=== PATIENT | male | born 1985 | race African-American/Black ===

== ENCOUNTER 2017-03-26 21:59 | Emergency (ER) | payer OTHER ==
[~2017-03-26] VITALS: Ht 182.9 cm; Wt 81.8 kg
[2017-03-27 01:04] VITALS: BP 130/80
== END 2017-03-27 01:07 | disposition home or self-care (01) ==
LOC: M ED 21:59
DX: S61.213A Laceration without foreign body of left middle finger without damage to nail, initial encounter (principal); W45.8XXA Other foreign body or object entering through skin, initial encounter; Y92.59 Other trade areas as the place of occurrence of the external cause; Y93.89 Activity, other specified; Y99.0 Civilian activity done for income or pay

== ENCOUNTER 2017-05-24 16:55 | Inpatient (IN) | payer OTHER ==
[~2017-05-24] VITALS: Ht 182.9 cm; Wt 82.0 kg
[2017-05-24] MEDS ORDERED: MIRT1TAB PO (17:02)
[2017-05-24 17:48] LABS: MEAN CORPUSCULAR HEMOGLOBIN 29.7 pg (27.0-33.0); MEAN CORPUSCULAR VOLUME 89.9 fl (80.0-96.0); PLATELET COUNT, AUTOMATED 211 10^3/uL (150-450); RED CELL DISTRIBUTION WIDTH 13.2 % (11.5-14.5); WHITE BLOOD COUNT 6.1 10^3/uL (4.0-10.0)
[2017-05-24 18:14] LABS: METHADONE URINE NEGATIVE (NEGATIVE)
[2017-05-24 18:20] LABS: ALBUMIN/GLOBULIN RATIO 1.08 (1.00-1.93); ALKALINE PHOSPHATASE 50 U/L (45-117); ALT/SGPT 24 U/L (12-78); ANION GAP 6 MEQ/L (8-16); AST/SGOT 14 U/L (7-37); BILIRUBIN,DIRECT 0.1 MG/DL (0.0-0.2); BILIRUBIN,TOTAL 0.4 MG/DL (0.2-1.0); BLOOD UREA NITROGEN 14 MG/DL (7-18); CALCIUM LEVEL 8.7 MG/DL (8.5-10.1); CARBON DIOXIDE LEVEL 32 MEQ/L (21-32); CHLORIDE LEVEL 102 MEQ/L (98-107); CREATININE FOR GFR 1.07 MG/DL (0.70-1.30); GLOMERULAR FILTRATION RATE > 60.0 (>60); GLUCOSE, FASTING 69 MG/DL (70-105); SODIUM LEVEL 140 MEQ/L (136-145); TOTAL PROTEIN 7.7 GM/DL (6.4-8.2)
[2017-05-24] MEDS ORDERED: MIRT15TA3 PO (19:23)
[2017-05-24] MEDS ORDERED: GUAIDM5UD PO (19:23)
[2017-05-24] MEDS ORDERED: PRAZ2CAP PO (19:23)
[2017-05-24] MEDS ORDERED: SKEL800T97 PO (19:23)
[2017-05-24] MEDS ORDERED: DIVA250T PO (19:23)
[2017-05-24] MEDS ORDERED: SORE15LO MT (19:23)
[2017-05-24] MEDS ORDERED: MIRTAZAPINE 15 MG TAB PO ONE (20:15)
[2017-05-24] MEDS ORDERED: DIVALPROEX 250 MG TAB PO ONE (20:15)
[2017-05-24] MEDS ORDERED: PRAZOSIN 1 MG CAP PO ONE (20:15)
[2017-05-25] MEDS ORDERED: ACETAMINOPHEN TAB 650MG DOSE (2X325MG) PO PRN (02:15)
[2017-05-25] MEDS ORDERED: MAALOX 30 ML SUSP *UDC PO PRN (02:15)
[2017-05-25] MEDS ORDERED: MOM 30ML SUSPENSION UDC PO PRN (02:15)
[2017-05-25 02:33] VITALS: BP 126/80
[2017-05-25 07:15] VITALS: BP 137/70
[2017-05-25] MEDS: VENLAFAXINE **XR** 37.5 MG CAPSULE PO SCH (11:20)
[2017-05-25] MEDS: GABAPENTIN 300 MG CAP PO SCH (11:21)
[2017-05-25 18:00] VITALS: BP 140/80
[2017-05-26] MEDS: AUGMENTIN 875 MG TAB PO SCH ×3 (00:02→21:43)
[2017-05-26] MEDS: QUEtiapine FUMARATE 100 MG TAB PO SCH ×2 (00:03→21:44)
[2017-05-26] MEDS: PRAZOSIN 1 MG CAP PO SCH ×2 (00:03→21:44)
[2017-05-26] MEDS: GABAPENTIN 300 MG CAP PO SCH ×3 (00:03→21:44)
[2017-05-26] MEDS: MIRTAZAPINE 15 MG TAB PO SCH ×2 (00:03→21:44)
[2017-05-26 06:00] VITALS: BP 150/68
[2017-05-26 09:35] VITALS: BP 175/88
[2017-05-26 09:38] VITALS: BP 132/76
[2017-05-26] MEDS: VENLAFAXINE **XR** 37.5 MG CAPSULE PO SCH (10:31)
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
[2017-05-26 18:00] VITALS: BP 140/70
[2017-05-27 07:01] VITALS: BP 133/75
[2017-05-27 08:07] VITALS: BP 133/75
[2017-05-27] MEDS: GABAPENTIN 300 MG CAP PO SCH (09:47)
[2017-05-27] MEDS: VENLAFAXINE **XR** 75MG CAPSULE PO SCH (09:47)
[2017-05-27] MEDS: AUGMENTIN 875 MG TAB PO SCH ×2 (09:47→22:08)
[2017-05-27] MEDS: DIVALPROEX 250MG *ER* TAB PO SCH ×2 (12:00→22:07)
[2017-05-27 18:00] VITALS: BP 135/75
--- NOTE | 2017-05-27 21:04 | MHIPN ---
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 MEDICATIONS: - Remeron 30 mg by mouth at night - Seroquel 100 mg by mouth at night - Minipres 2 mg by mouth at night - Effexor XR 37.5 mg by mouth in the morning - trazodone 50 mg as needed for insomnia SUBJECTIVE: "I think I am feeling better." OBJECTIVE: No major changes from yesterday on admission. The patient continues to have sad restricted facial expression and psychomotor retardation. The patient is mostly in his room, very little interaction with other patients and staff. There is no evidence of psychotic symptoms. Denies side effects from the medications. MENTAL STATUS EXAMINATION: The patient is dressed in [facility]. The patient is cooperative during the exam. Has fair eye contact. Speech is slow and monotone. Mood is depressed and anxious. Affect is restricted. No delusions or hallucinations. Memory, attention and concentration are fair. The patient is able to contract for safety during the interview. Insight and judgment is limited. ASSESSMENT: 1. Depression. 2. Suicidal ideation. PLAN: 1. Remeron 30 mg by mouth at night. 2. Seroquel 100 mg by mouth at night. 3. Minipres 2 mg by mouth at night. 4. Effexor XR 75 mg by mouth in the morning. 5. Neurontin 300 mg by mouth twice a day.
[2017-05-27] MEDS: traZODone 50 MG TAB PO PRN (22:07)
[2017-05-27] MEDS: PRAZOSIN 1 MG CAP PO SCH (22:08)
[2017-05-27] MEDS: MIRTAZAPINE 15 MG TAB PO SCH (22:08)
--- NOTE | 2017-05-28 03:43 | HPE ---
DATE OF ADMISSION: 05/24/2017 HISTORY OF PRESENT ILLNESS: Please refer to psychiatric history and evaluation for further details on this admission. This examination and history is intended for medical issues, which may need treatment, followup or consult on this 31-year-old male. PRIMARY CARE PROVIDER: [facility]. ALLERGIES: PORK. 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 Ethyl alcohol (EtOH) none. Smokes none. Recreational drug use none. PAST MEDICAL HISTORY: 1. Chronic back pain. 2. Migraines. PAST SURGICAL HISTORY: Negative. HOME MEDICATIONS: - Depakote 250 mg by mouth twice a day - guaifenesin DM cough syrup one dose as needed for cough - Skelaxin 800 mg by mouth three times a day as needed for spasms - mirtazapine 30 mg by mouth nightly - prazosin 2 mg by mouth nightly LABORATORY STUDIES: CBC was normal. Electrolytes were normal. BUN and creatinine were 14 and 1.07. Toxicology screen was negative. FAMILY HISTORY: Noncontributory. REVIEW OF SYSTEMS: 10-system review was done. He is complaining of continued cough, yellow mucus production, chills. No chest pain, shortness of breath. No wheezing. No nausea or vomiting. Chronic back pain, clinically stable. PHYSICAL EXAMINATION: 31-year-old cooperative male in no acute distress. Height 72 inches, weight 81.82 kg, body mass index (BMI) 24.5. Blood pressure 130/76, pulse 60, respirations 15, temperature 97.7. Patient is alert and oriented times three. Pupils equal and react to light. Extraocular muscles intact. Cornea and sclerae clear. Conjunctivae were normal. No facial asymmetry. Pharynx slightly reddened. Tongue and gums pink and moist. Tongue is midline. Neck is supple without lymphadenopathy. No thyromegaly, no goiter. Carotids 2+ without bruit. Chest has coarse breath sounds, few rhonchi clear with cough. No wheeze or retraction. Heart is regular. Abdomen is benign. Bowel sounds positive. Genitourinary/rectal: Not done. Extremities show equal strength, full range of motion. No cyanosis, clubbing or edema. Peripheral pulses equal and palpable bilaterally. Skin is warm and dry. IMPRESSION/PLAN: 1. Psychiatric plan per psychiatry. 2. Chronic back pain. Continue to followup with [facility]. 3. Upper respiratory infection (URI). Augmentin 875 one by mouth twice a day times 10 days.
[2017-05-28 06:41] VITALS: BP 135/94
[2017-05-28] MEDS: AUGMENTIN 875 MG TAB PO SCH ×2 (09:38→21:20)
[2017-05-28] MEDS: VENLAFAXINE **XR** 75MG CAPSULE PO SCH (09:39)
[2017-05-28] MEDS: DIVALPROEX 250MG *ER* TAB PO SCH ×2 (09:39→21:20)
[2017-05-28] MEDS ORDERED: VENL75CA47 PO (11:20)
[2017-05-28] MEDS ORDERED: AMOX875T2 PO (11:20)
[2017-05-28] MEDS ORDERED: TRAZO50TA PO (11:20)
--- NOTE | 2017-05-28 12:18 | MHIPN ---
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 MEDICATIONS: - Effexor XR 75 mg by mouth daily - Remeron 30 mg by mouth at bedtime - Seroquel 100 mg by mouth at bedtime - Neurontin 600 mg by mouth twice a day - Minipress 2 mg by mouth at bedtime - trazodone 50 mg as needed for insomnia SUBJECTIVE: "I am feeling better, I am less stressed". OBJECTIVE: Patient is improving. Patient is able to contract for safety during the interview today. Patient reports that he was very stressed with his job and the pain. Says that this pain is preventing him from being able to work and this is highly stressful. Discussed treatment plan. No auditory or visual hallucinations or delusions. The patient is motivated. MENTAL STATUS EXAMINATION: Patient is dressed in [facility]. Patient is cooperative, has fair eye contact. Speech is normal in rate, volume and articulation. Mood is depressed, but improved. Affect is less restricted. No delusions. No hallucinations. Memory is intact. Patient is fully oriented. Associations are intact. Patient is able to contract for safety during the interview. Insight and judgment id fair. ASSESSMENT: 1. Depression. 2. Suicidal ideation. PLAN: 1. Discontinue Neurontin since it is not effective for pain management. 2. Discontinue Seroquel. 3. Continue Effexor XR 75 mg by mouth every morning. 4. Continue Remeron 30 mg by mouth at bedtime. 5. Continue medication management, individual and group therapy.
[2017-05-28 18:00] VITALS: BP 144/62
[2017-05-28 21:20] VITALS: BP 127/85
[2017-05-28] MEDS: MIRTAZAPINE 15 MG TAB PO SCH (21:20)
[2017-05-28] MEDS: traZODone 50 MG TAB PO PRN (21:20)
[2017-05-28] MEDS: PRAZOSIN 1 MG CAP PO SCH (21:20)
[2017-05-29 06:34] VITALS: BP 140/89
[2017-05-29] MEDS: AUGMENTIN 875 MG TAB PO SCH (09:16)
[2017-05-29] MEDS: DIVALPROEX 250MG *ER* TAB PO SCH (09:16)
[2017-05-29] MEDS: VENLAFAXINE **XR** 75MG CAPSULE PO SCH (09:16)
--- NOTE | 2017-05-29 10:29 | IPN ---
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 MEDICATIONS: - Effexor XR 75 mg by mouth in the morning - Remeron 30 mg by mouth at night - Seroquel 100 mg by mouth at night - Neurontin 600 mg by mouth twice a day - Minipres 2 mg by mouth at night - trazodone 50 mg by mouth at night as needed for insomnia SUBJECTIVE: "I am feeling much better." OBJECTIVE: The patient continues to improve and reports that his depression is significantly better. He is able to contract for safety. The patient is motivated for treatment. No psychotic symptoms. No auditory or visual hallucinations or delusions. MENTAL STATUS EXAMINATION: The patient is dressed in [facility]. The patient is cooperative. Fair eye contact. Speech is normal in rate, volume, articulation. The patient is less depressed. The patient's affect is within normal limits. No delusions or hallucinations. Memory is fair. The patient is fully oriented. Associations are intact. Thinking is logical. Insight and judgment fair. ASSESSMENT: 1. Depression. 2. Suicidal ideation. PLAN: 1. Continue Effexor XR 75 mg by mouth in the morning 2. Continue Remeron 30 mg by mouth at night 3. Continue medication management, individual and group therapy. 4. Continue Minipres 2 mg by mouth at night. 5. Discharge process has been started.
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
== END 2017-05-29 14:06 | disposition home or self-care (01) | DRG 885 ==
LOC: M ED 16:55 → M ED INP 23:53 → M PSY 05-25 02:09 → M ED INP 05-25 16:23 → M PSY 05-25 16:24
PROVIDERS: ADMIT Psychiatry & Neurology Psychiatry; ATTEND Psychiatry & Neurology Psychiatry
DX: F32.3 Major depressive disorder, single episode, severe with psychotic features (principal); F41.9 Anxiety disorder, unspecified; F45.0 Somatization disorder; F43.10 Post-traumatic stress disorder, unspecified; J06.9 Acute upper respiratory infection, unspecified; G47.00 Insomnia, unspecified; M54.9 Dorsalgia, unspecified; G43.909 Migraine, unspecified, not intractable, without status migrainosus; Z79.899 Other long term (current) drug therapy; Z87.820 Personal history of traumatic brain injury; Z87.828 Personal history of other (healed) physical injury and trauma

== ENCOUNTER 2017-07-05 10:47 | Emergency (ER) | payer OTHER ==
[~2017-07-05] VITALS: Ht 182.9 cm; Wt 83.6 kg
[2017-07-05 10:47] VITALS: BP 142/84
[~2017-07-05 10:47] MED LIST: AMOX875T2 PO; DIVA250T PO; GUAIDM5UD PO; MIRT15TA3 PO; MIRT1TAB PO; PRAZ2CAP PO; SKEL800T97 PO; SORE15LO MT; TRAZO50TA PO; VENL75CA47 PO
[2017-07-05] MEDS ORDERED: KETO2SH (11:09)
[2017-07-05] MEDS ORDERED: BUPR100T3 (11:09)
[2017-07-05] MEDS ORDERED: TOPI25TA10 (11:09)
--- NOTE | 2017-07-05 12:06 | REP ---
CT Head without contrast HISTORY: Fall COMPARISON: None There is no intraparenchymal hemorrhage, acute infarct, mass or midline shift. The ventricular system is normal in appearance. There is no extra cerebral collection. There is no fracture. The visualized sinuses are clear. IMPRESSION: There is no intracranial lesion. Signed by Yordan Chavarria MD 07/05/2017 11:58 A
--- NOTE | 2017-07-05 12:26 | REP ---
Right knee six views : There is no fracture or dislocation. Mineralization and joint spaces are normal. There are no calcifications or foreign bodies. Impression: Negative right knee . Signed by Ta Howe MD 07/05/2017 12:17 P
== END 2017-07-05 12:30 | disposition home or self-care (01) ==
LOC: M ED 10:47
DX: S80.01XA Contusion of right knee, initial encounter (principal); S09.90XA Unspecified injury of head, initial encounter; W00.0XXA Fall on same level due to ice and snow, initial encounter; Y92.093 Driveway of other non-institutional residence as the place of occurrence of the external cause; Y93.01 Activity, walking, marching and hiking; Y99.8 Other external cause status; K59.00 Constipation, unspecified; F41.9 Anxiety disorder, unspecified; F33.9 Major depressive disorder, recurrent, unspecified; Z79.899 Other long term (current) drug therapy; Z87.820 Personal history of traumatic brain injury; Z91.018 Allergy to other foods

== ENCOUNTER 2017-07-30 14:09 | Emergency (ER) | payer OTHER ==
[2017-07-30 17:45] LABS: BASO % 0.4 % (0.0-1.0); EOS # 0.1 10^3/uL (0.0-0.50); HEMATOCRIT 44.2 % (42.0-52.0); HEMOGLOBIN 14.8 g/dl (14.0-18.0); IMMATURE GRANULOCYTE % 0.2 % (0-0); LYMPH # 2.7 10^3/uL (1.5-4.5); LYMPH % 53.1 % (24.0-44.0); MEAN CORPUSCULAR HEMOGLOBIN 29.8 pg (27.0-33.0); MEAN CORPUSCULAR HGB CONC 33.5 g/dl (32.0-36.5); MEAN CORPUSCULAR VOLUME 88.9 fl (80.0-96.0); MONO # 0.4 10^3/uL (0.0-0.8); MONO % 8.7 % (0.0-5.0); NEUTROPHILS # 1.9 10^3/uL (1.8-7.7); NEUTROPHILS % 36.6 % (36.0-66.0); PLATELET COUNT, AUTOMATED 231 10^3/uL (150-450); RED BLOOD COUNT 4.97 10^6/uL (4.30-6.10); RED CELL DISTRIBUTION WIDTH 13.1 % (11.5-14.5); WHITE BLOOD COUNT 5.1 10^3/uL (4.0-10.0)
[2017-07-30 18:16] LABS: ALBUMIN 3.9 GM/DL (3.2-5.2); ALBUMIN/GLOBULIN RATIO 1.11 (1.00-1.93); ALKALINE PHOSPHATASE 55 U/L (45-117); ALT/SGPT 17 U/L (12-78); ANION GAP 7 MEQ/L (8-16); AST/SGOT 11 U/L (7-37); BILIRUBIN,DIRECT 0.1 MG/DL (0.0-0.2); BILIRUBIN,TOTAL 0.2 MG/DL (0.2-1.0); BLOOD UREA NITROGEN 13 MG/DL (7-18); CALCIUM LEVEL 8.7 MG/DL (8.5-10.1); CARBON DIOXIDE LEVEL 30 MEQ/L (21-32); CHLORIDE LEVEL 104 MEQ/L (98-107); CPK CREATINE PHOSPHOKINASE 235 U/L (39-308); CREATININE FOR GFR 1.02 MG/DL (0.70-1.30); GLOMERULAR FILTRATION RATE > 60.0 (>60); GLUCOSE, FASTING 89 MG/DL (70-105); LIPASE 181 U/L (73-393); MB/CK RELATIVE INDEX 0.42 (< OR =4); POTASSIUM SERUM 4.1 MEQ/L (3.5-5.1); SODIUM LEVEL 141 MEQ/L (136-145); TOTAL PROTEIN 7.4 GM/DL (6.4-8.2); TROPONIN I < 0.02 NG/ML (< 0.10)
== END 2017-07-30 18:51 | disposition home or self-care (01) ==
LOC: M ED 14:09
DX: R07.89 Other chest pain (principal); F41.9 Anxiety disorder, unspecified; F32.9 Major depressive disorder, single episode, unspecified
CPT/HCPCS: 71046

== ENCOUNTER 2017-08-22 20:36 | Emergency (ER) | payer OTHER | END 2017-08-22 23:19 | disposition left against medical advice (07) | LOC: M ED 20:36 | DX: Z53.21 Procedure and treatment not carried out due to patient leaving prior to being seen by health care provider (principal) ==

== ENCOUNTER 2017-10-10 17:38 | Emergency (ER) | payer OTHER | END 2017-10-10 20:05 | disposition home or self-care (01) | LOC: M ED 17:38 | DX: F41.9 Anxiety disorder, unspecified (principal) | CPT/HCPCS: 99282 ==